=== PATIENT | female | born 1935 | race Caucasian/White ===

== ENCOUNTER → 2017-06-13 | Outpatient (CLI) | payer MEDICARE ==
--- NOTE | 2017-06-13 12:26 | Diagnostic Imaging Report ---
INDICATION: Screening for osteoporosis. COMPARISON: 06/24/2014. TECHNIQUE: The bone mineral analysis of the lumbar spine and both hips was performed. FINDINGS: The bone mineral density of the lumbar spine from L2 to L4 is 0.959 with a T score of -2.0. This compares with 0.986 and -1.8 on the prior exam. The bone mineral density of the left femoral neck is 0.988 with a T score of -0.4. This compares with 0.937 and -0.7 previously. The bone mineral density of the right femoral neck is 0.940 with a T score -0.7. This compares with 0.900 and -1.0. IMPRESSION: Osteopenia of the lumbar spine with normal bone mineral density of the bilateral femoral necks. Dictated by: Dictated on workstation # [id number]
--- NOTE | 2017-06-13 18:44 | Diagnostic Imaging Report ---
INDICATION: Routine screening. Comparison is made with prior study from 06/27/2015 and 06/24/2014. The current study was also evaluated with a Computer Aided Detection (CAD) system. FINDINGS: Both breasts are primarily involutional. A tiny nodule with calcifications in the medial aspect of the right breast appears stable. No new mass or malignant-appearing microcalcifications are seen. There are vascular calcifications bilaterally. The axillae are unremarkable. IMPRESSION: No mammographic features suspicious for malignancy are identified. ACR BI-RADS Category 2: Benign findings. Result letter will be mailed to the patient. Note: At least 10% of breast cancer is not imaged by mammography. Dictated by: Dictated on workstation # [id number]
== END ==
LOC: RAD 10:08
PROVIDERS: ATTEND Internal Medicine
DX: Z12.31 Encounter for screening mammogram for malignant neoplasm of breast (principal); Z13.820 Encounter for screening for osteoporosis; M85.88 Other specified disorders of bone density and structure, other site
CPT/HCPCS: 77067; 77080

== ENCOUNTER 2022-05-12 08:57 | Emergency (ER) | payer MEDICARE ==
[~2022-05-12] VITALS: Ht 154.9 cm; Wt 56.2 kg
--- NOTE | 2022-05-12 10:29 | ED Abdominal Pain ---
General Chief Complaint: Abdominal/GI Problems Stated Complaint: CONSTIPATION Nursing Triage Note: PT AMB TO RM 9 WITH COMPLAINT OF NOT FEELING WELL AND CONSTIPATION. STATES SHE HAD COVID OVER A WEEK AGO AND HAD DIARRHEA AFTER TAKING MEDICINE FOR IT. STATES SHE HAS NOT HAD A BOWEL MOVEMENT AND FEELS LIKE SHE IS DEHYDRATED. Source of Information: Patient Exam Limitations: No Limitations History of Present Illness Date Seen by Provider: May 12, 2022 Time Seen by Provider: 10:20 Initial Comments Here with report of feeling weak and concerns for constipation. She apparently had COVID-19 2 weeks ago that has recovered but is not recovering well. She initiated molnupiravir on 05/04/2022 and completed that. She subsequently had diarrhea for at least a day and then took antidiarrheal medicines. She stopped having diarrhea but has not had a bowel movement for 2 to 3 days. She complains of lower abdominal pain. She complains of weakness and not drinking or eating well because she feels so terrible. Denies fever or chills. Follows with Dr. Retana. Timing/Duration: 2-3 Days, Getting Worse Severity/Quality: Mild, Moderate, Aching Location: LLQ, Suprapubic Radiation: No Radiation Activities at Onset: None Modifying Factors: Worsens With Eating Associated Symptoms: No Back Pain, No Chest Pain, No Fever/Chills; Fatigue; No Nausea/Vomiting, No Shortness of Air; Weakness Allergies and Home Medications Allergies Coded Allergies: Sulfa (Sulfonamides) (Verified Allergy, 10/03/09) Patient Home Medication List Home Medication List Reviewed: Yes Review of Systems Review of Systems Constitutional: see HPI; No chills, No fever EENTM: No Nose Congestion, No Throat Pain Respiratory: Denies Cough, Denies Shortness of Air Cardiovascular: Denies Edema Gastrointestinal: Constipated, Diarrhea Genitourinary: Other (Decreased output) Musculoskeletal: No back pain, No muscle pain Skin: no symptoms reported Psychiatric/Neurological: Denies Headache; Weakness All Other Systems Reviewed Negative Unless Noted: Yes Past Ogjrkfl-Ylwioo-Zpvtsm Hx Patient Social History Tobacco Use?: No Use of E-Cig and/or Vaping dev: No Substance use?: No Alcohol Use?: No Pt feels they are or have been: No Past Medical History Surgeries: No Respiratory: No Cardiac: Yes High Cholesterol, Hypertension Neurological: No Endocrine: Yes Hypothyroidsim Family Medical History Reviewed and Corrections made No Pertinent Family Hx Physical Exam Vital Signs Vital Signs - First Documented 05/12/22 09:23 Temp 36.0 Pulse 67 Resp 17 B/P (MAP) 196/90 (125) Pulse Ox 95 O2 Delivery Room Air Capillary Refill : Less Than 3 Seconds Height/Weight/BMI Height: '" Weight: lbs. oz. kg; 23.00 BMI Method: General Appearance: WD/WN, mild distress HEENT: PERRL/EOMI, pharynx normal Neck: full range of motion, supple Respiratory: lungs clear, normal breath sounds Cardiovascular: regular rate, rhythm, no murmur Gastrointestinal: soft, abnormal bowel sounds (Decreased), tenderness (Left lower quadrant and suprapubic) Extremities: non-tender, normal inspection Back: normal inspection, no CVA tenderness, no vertebral tenderness Neurologic/Psychiatric: alert, oriented x 3 Skin: normal color, warm/dry Progress/Results/Core Measures Results/Orders Lab Results Laboratory Tests Test 05/12/22 10:44 05/12/22 11:10 Range/Units Urine Color YELLOW Urine Clarity CLEAR Urine pH 6.0 5-9 Urine Specific [place] 1.015 L 1.016-1.022 Urine Protein NEGATIVE NEGATIVE Urine Glucose (UA) NEGATIVE NEGATIVE Urine Ketones NEGATIVE NEGATIVE Urine Nitrite NEGATIVE NEGATIVE Urine Bilirubin NEGATIVE NEGATIVE Urine Urobilinogen 0.2 < = 1.0 MG/DL Urine Leukocyte Esterase NEGATIVE NEGATIVE Urine RBC (Auto) 1+ H NEGATIVE Urine RBC 10-25 H /HPF Urine WBC 2-5 /HPF Urine Crystals NONE /LPF Urine Bacteria FEW H /HPF Urine Casts NONE /LPF Urine Mucus NEGATIVE /LPF Urine Culture Indicated YES White Blood Count 14.6 H 4.3-11.0 10^3/uL Red Blood Count 4.17 3.80-5.11 10^6/uL Hemoglobin 12.8 11.5-16.0 g/dL Hematocrit 38 35-52 % Mean Corpuscular Volume 91 80-99 fL Mean Corpuscular Hemoglobin 31 25-34 pg Mean Corpuscular Hemoglobin Concent 34 32-36 g/dL Red Cell Distribution Width 12.5 10.0-14.5 % Platelet Count 241 130-400 10^3/uL Mean Platelet Volume 9.9 9.0-12.2 fL Immature Granulocyte % (Auto) 1 % Neutrophils (%) (Auto) 91 H 42-75 % Lymphocytes (%) (Auto) 5 L 12-44 % Monocytes (%) (Auto) 4 0-12 % Eosinophils (%) (Auto) 0 0-10 % Basophils (%) (Auto) 0 0-10 % Neutrophils # (Auto) 13.3 H 1.8-7.8 10^3/uL Lymphocytes # (Auto) 0.7 L 1.0-4.0 10^3/uL Monocytes # (Auto) 0.5 0.0-1.0 10^3/uL Eosinophils # (Auto) 0.0 0.0-0.3 10^3/uL Basophils # (Auto) 0.0 0.0-0.1 10^3/uL Immature Granulocyte # (Auto) 0.1 0.0-0.1 10^3/uL Neutrophils % (Manual) 86 % Lymphocytes % (Manual) 4 % Monocytes % (Manual) 4 % Band Neutrophils 6 % Toxic Granulation 2+ Blood Morphology Comment NORMAL Sodium Level 126 L 135-145 MMOL/L Potassium Level 4.2 3.6-5.0 MMOL/L Chloride Level 95 L 98-107 MMOL/L Carbon Dioxide Level 20 L 21-32 MMOL/L Anion Gap 11 5-14 MMOL/L Blood Urea Nitrogen 15 7-18 MG/DL Creatinine 0.79 0.60-1.30 MG/DL Estimat Glomerular Filtration Rate 73 BUN/Creatinine Ratio 19 Glucose Level 119 H 70-105 MG/DL Calcium Level 8.2 L 8.5-10.1 MG/DL Corrected Calcium 8.6 8.5-10.1 MG/DL Magnesium Level 1.7 1.6-2.4 MG/DL Total Bilirubin 0.6 0.1-1.0 MG/DL Aspartate Amino Transf (AST/SGOT) 17 5-34 U/L Alanine Aminotransferase (ALT/SGPT) 25 0-55 U/L Alkaline Phosphatase 82 40-136 U/L C-Reactive Protein High Sensitivity 0.49 0.00-0.50 MG/DL Total Protein 6.0 L 6.4-8.2 GM/DL Albumin 3.5 3.2-4.5 GM/DL TSH [place] Testing 1.37 0.35-4.94 UIU/ML My Orders Orders - VAMSI MARIE MD Cbc With Automated Diff (05/12/22 10:28) Comprehensive Metabolic Panel (05/12/22 10:28) Hs C Reactive Protein (05/12/22 10:28) Ua Culture If Indicated (05/12/22 10:28) Ed Iv/Invasive Line Start (05/12/22 10:28) Ns Iv 500 Ml (Sodium Chloride 0.9%) (05/12/22 10:30) Acute Abd Series (05/12/22 10:28) Urine Culture (05/12/22 10:44) Manual Differential (05/12/22 11:10) Ns Iv 500 Ml (Sodium Chloride 0.9%) (05/12/22 12:00) Ct Abdomen/Pelvis W (05/12/22 12:58) Iohexol Injection (Omnipaque 350 Mg/Ml 1 (05/12/22 13:15) Received Contrast (Hold Metformin- Contr (05/12/22 13:15) Ns (Ivpb) (Sodium Chloride 0.9% Ivpb Bag (05/12/22 13:15) Magnesium (05/12/22 13:07) Thyroid Analyzer (05/12/22 13:07) Bisacodyl Suppository (Dulcolax Supposit (05/12/22 14:30) Medications Given in ED Current Medications Medications Dose Ordered Sig/Kimberly Route Start Time Stop Time Status Last Admin Dose Admin Bisacodyl 20 mg ONCE ONCE ND 05/12/22 14:30 05/12/22 14:31 DC 05/12/22 14:29 20 MG Iohexol 100 ml ONCE ONCE IV 05/12/22 13:15 05/12/22 13:16 DC 05/12/22 13:17 62 ML Sodium Chloride 100 ml ONCE ONCE IV 05/12/22 13:15 05/12/22 13:16 DC 05/12/22 13:17 80 ML Sodium Chloride 500 ml @ 0 mls/hr Q0M ONCE IV 05/12/22 10:30 05/12/22 10:31 DC 05/12/22 11:12 0 MLS/HR Sodium Chloride 500 ml @ 0 mls/hr Q0M ONCE IV 05/12/22 12:00 05/12/22 12:02 DC 05/12/22 12:34 0 MLS/HR Vital Signs/I&O 05/12/22 09:23 Temp 36.0 Pulse 67 Resp 17 B/P (MAP) 196/90 (125) Pulse Ox 95 O2 Delivery Room Air Blood Pressure Mean: 125 Progress Progress Note : Progress Note Seen and evaluated. IV, CBC, CMP and UA ordered. We will get acute abdominal series. Normal saline 500 mL bolus ordered. Monitor patient. 1230: Repeat normal saline 500 mL bolus as patient is dehydrated based on low sodium and chloride. She still appears quite peaked. Acute abdominal series complete. We will see if she feels a little better. There is question of ileus and distal colonic constipation. Monitor patient. 1300: Patient is still quite ill- appearing and weak appearing. Given her x-ray findings, we will go ahead and do CT abdomen of pelvis to rule out obstruction better and other pathology. White count is elevated but hemoglobin normal. CRP is low. Discussed with patient who agrees. Fluids are still running. Monitor patient. 1430: Dulcolax suppositories 20 mg placed by me. Patient did have a large stool ball but it was soft. We will see if this helps. 1504: Patient had large stool and feels much better. Patient feels comfortable going home. I did talk with her about the apparent distal stone on the left that is nonobstructing as there is no hydronephrosis. She will need to follow-up with urologist. I will send a copy of the chart to her primary care doctor, Dr. Retana, who can assist with ref erral to urology as there is no local urologist currently. Discharged home with return precautions. Patient verbalized understanding instructions and agreement with plan. Diagnostic Imaging Diagonstic Imaging: Xray Plain Films/CT/US/NM/MRI: chest, abdomen Comments [facility] [place], [place] NAME: BRO DONOVAN [facility] REC#: [id number] PT STATUS: REG ER : 1935 PHYSICIAN: VAMSI MARIE MD ADMIT DATE: 05/12/22/ER Draft Date of Exam:05/12/22 ACUTE ABD SERIES INDICATION: Not feeling well, constipation, COVID over week ago, diarrhea. TECHNIQUE: Single view chest with supine and upright radiograph of the abdomen. CORRELATION STUDY: None FINDINGS: Frontal radiograph of the chest demonstrates no acute abnormality. Rather sizable esophageal hernia. Scattered gas-filled loops of bowel are present. This includes the stomach, small bowel and colon. No differentiating air-fluid levels or findings to suggest high degree obstruction. There is moderate stool retention in the distal colon. No definitive pathologic intra-abdominal calcifications. Multiple calcifications in the pelvis favor probable phleboliths. IMPRESSION: 1. Negative for acute cardiopulmonary abnormality. 2. Prominent gas distention throughout the gastrointestinal track with a few air-fluid levels. Features favor probable ileus. No findings to suggest underlying obstruction. Mild distal colonic fecal loading. Dictated on workstation # [id number] Dict: 05/12/22 1045 Trans: 05/12/22 1123 [facility] [id number] Interpreted by: CINDY STEPHENS DO Electronically signed by: [facility] Imaging: CT Plain Films/CT/US/NM/MRI: abdomen, pelvis Comments [facility] [place] [place] NAME: VENUSBRO R [facility] REC#: [id number] PT STATUS: REG ER : 1935 PHYSICIAN: VAMSI MARIE MD ADMIT DATE: 05/12/22/ER Draft Date of Exam:05/12/22 CT ABDOMEN/PELVIS W PROCEDURE: CT abdomen and pelvis with contrast. TECHNIQUE: Multiple contiguous axial images were obtained through the abdomen and pelvis after administration of intravenous contrast. Auto Exposure Controls were utilized during the CT exam to meet ALARA standards for radiation dose reduction. All CT scans use one or more of the following dose optimizing techniques: automated exposure control, MA and/or KvP adjustment based on patient size and exam type or iterative reconstruction. INDICATION: 87-year-old female not feeling well, constipation. CORRELATION STUDY: None. FINDINGS: LOWER THORAX: Lung bases with perhaps atelectasis and/or scarring. No basilar infiltrate. There is a rather sizable esophageal hernia with approximately one-third of the stomach partially folded on itself in the lower chest. Component of partial obstruction is not excluded. LIVER: Unremarkable. GALLBLADDER: Present and unremarkable. No bile duct dilatation. SPLEEN: Unremarkable. PANCREAS: Unremarkable. ADRENAL GLANDS: Unremarkable. KIDNEYS: Some generalized thinning of the renal parenchyma of both kidneys, right greater than left. Nonobstructing left renal stone. 7 x 5 mm stone at the most distal left UVJ. Despite the size of the stone, there is very little left-sided obstruction. Some generalized ureteric wall thickening bilaterally. ABDOMINAL AORTA: Mild wall calcification, nonaneurysmal. Retroaortic left renal vein, normal variant. No pathologically enlarged aortocaval lymph nodes. GASTROINTESTINAL TRACT: Moderate amount of a fecal loading at the rectum. Slight rectal wall thickening and some haziness and the presacral soft tissues could be a component of proctitis and/or stercoral colitis. Remainder of the colon relatively unremarkable apart from a few scattered diverticula. Normal appendix is present. No abdominal ascites and/or free air. Gas and fluid-filled loops of small bowel and a relatively nonobstructive appearance. No abdominal ascites and/or free air.. URINARY BLADDER: Apart from the calcification and some wall thickening of the UVJ, otherwise unremarkable. REPRODUCTIVE: Uterus and adnexa unremarkable. OSSEOUS STRUCTURES: No acute abnormality. OTHER: None. IMPRESSION: 1. Rather prominent, upwards of 7 mm calcification at the distal left UVJ. Despite the size of the stone, results in very little, if any, obstruction. There is the suggestion of some wall thickening at the left posterolateral bladder/UVJ. 2. Additional nonobstructing left renal stone. Some generalized thinning of the renal parenchyma of both kidneys, right greater than left. 3. Moderate distal colonic fecal loading. A component of proctitis/stercoral colitis not excluded. No hydroureteral obstruction. 4. Rather sizable esophageal hernia with portions of the stomach somewhat folded on itself. May result in partial and/or intermittent obstruction. Dictated on workstation # [id number] Dict: 05/12/22 1329 Trans: 05/12/22 1349 [facility] [id number] Interpreted by: CINDY STEPHENS DO Electronically signed by: Reviewed: Reviewed by Me Departure Impression Primary Impression: Constipation Qualified Codes: K59.00 - Constipation, unspecified Additional Impressions: Dehydration Calculus of distal left ureter Disposition: 01 HOME, SELF-CARE Condition: Improved Departure-Patient Inst. Decision time for Depature: 15:07 Referrals: TORI RETANA DO (PCP/Family) Primary Care Physician Patient Instructions: Severe Abdominal Pain, Adult (DC), Kidney Stones (DC), D ehydration, Adult ED, Small Bowel Obstruction (DC), Appendicitis, Adult (DC) Add. Discharge Instructions: All discharge instructions reviewed with patient and/or family. Voiced understanding. Drink plenty of fluids by taking small sips frequently. Clear a light diet for the next 24 hours and then advance as tolerated. It is very important that you follow-up with Dr. Retana to discuss current situation and to discuss the stone that was noted in the left sided urinary tract at the bladder. This does not seem to be causing obstruction and is likely chronic but you will need to follow-up with urologist. He can help with urology referral. Continue home medications as previously prescribed. Return for worse pain, vomiting, weakne ss, fever, breathing problems or other concerns as needed. Copy Copies To 1: TORI RETANA TIMOTHY D MD May 12, 2022 10:29
[2022-05-12] MEDS ORDERED: NS IV 500 ML 500 ML IV ONE ×2 (10:30→12:00)
[2022-05-12 10:53] LABS: BILIRUBIN,URINE NEGATIVE (NEGATIVE); CLARITY,URINE CLEAR; COLOR,URINE YELLOW; GLUCOSE, URINE (UA) NEGATIVE (NEGATIVE); KETONES,URINE NEGATIVE (NEGATIVE); LEUKOCYTE ESTERASE ,URINE NEGATIVE (NEGATIVE); NITRITE,URINE NEGATIVE (NEGATIVE); PROTEIN,URINE NEGATIVE (NEGATIVE)
[2022-05-12 11:03] LABS: BACTERIA,URINE FEW /HPF
[2022-05-12 11:20] LABS: BASOPHILS % (AUTO) 0 % (0-10); EOSINOPHILS % (AUTO) 0 % (0-10); HEMATOCRIT 38 % (35-52); HEMOGLOBIN 12.8 g/dL (11.5-16.0); LYMPHOCYTES # (AUTO) 0.7 10^3/uL (1.0-4.0); LYMPHOCYTES % (AUTO) 5 % (12-44); MEAN CORPUSCULAR HEMOGLOBIN 31 pg (25-34); MEAN CORPUSCULAR HGB CONC 34 g/dL (32-36); MEAN CORPUSCULAR VOLUME 91 fL (80-99); MEAN PLATELET VOLUME 9.9 fL (9.0-12.2); MONOCYTES # (AUTO) 0.5 10^3/uL (0.0-1.0); MONOCYTES % (AUTO) 4 % (0-12); NEUTROPHILS # (AUTO) 13.3 10^3/uL (1.8-7.8); NEUTROPHILS % (AUTO) 91 % (42-75); PLATELET COUNT 241 10^3/uL (130-400); WHITE BLOOD COUNT 14.6 10^3/uL (4.3-11.0)
--- NOTE | 2022-05-12 11:25 | Diagnostic Imaging Report ---
INDICATION: Not feeling well, constipation, COVID over week ago, diarrhea. TECHNIQUE: Single view chest with supine and upright radiograph of the abdomen. CORRELATION STUDY: None FINDINGS: Frontal radiograph of the chest demonstrates no acute abnormality. Rather sizable esophageal hernia. Scattered gas-filled loops of bowel are present. This includes the stomach, small bowel and colon. No differentiating air-fluid levels or findings to suggest high degree obstruction. There is moderate stool retention in the distal colon. No definitive pathologic intra-abdominal calcifications. Multiple calcifications in the pelvis favor probable phleboliths. IMPRESSION: 1. Negative for acute cardiopulmonary abnormality. 2. Prominent gas distention throughout the gastrointestinal track with a few air-fluid levels. Features favor probable ileus. No findings to suggest underlying obstruction. Mild distal colonic fecal loading. Dictated by: Dictated on workstation # [id number]
[2022-05-12 11:30] LABS: ALBUMIN 3.5 GM/DL (3.2-4.5); POTASSIUM 4.2 MMOL/L (3.6-5.0)
[2022-05-12 11:31] LABS: CALCIUM 8.2 MG/DL (8.5-10.1)
[2022-05-12 11:35] LABS: BILIRUBIN,TOTAL 0.6 MG/DL (0.1-1.0)
[2022-05-12 11:36] LABS: CREATININE SERUM 0.79 MG/DL (0.60-1.30)
[2022-05-12 11:46] LABS: BAND NEUTROPHILS 6 %; LYMPHOCYTES % (MANUAL) 4 %; MONOCYTES % (MANUAL) 4 %; NEUTROPHILS % (MANUAL) 86 %; RBC MORPH NORMAL; TOXIC GRANULATION/VACUOLAZATIO 2+
[2022-05-12] MEDS ORDERED: NS 100 ML (IVPB) BAG IV ONE (13:15)
[2022-05-12] MEDS ORDERED: HOLD METFORMIN - RECEIVED CONTRAST 20 ML VIAL IV SCH (13:15)
[2022-05-12] MEDS ORDERED: IOHEXOL 350 MG/ML 100 ML (OMNIPAQUE 350) VIAL IV ONE (13:15)
[2022-05-12 13:26] LABS: MAGNESIUM 1.7 MG/DL (1.6-2.4)
[2022-05-12 13:46] LABS: TSH (THYROID ANALYZER) 1.37 UIU/ML (0.35-4.94)
--- NOTE | 2022-05-12 13:50 | Diagnostic Imaging Report ---
PROCEDURE: CT abdomen and pelvis with contrast. TECHNIQUE: Multiple contiguous axial images were obtained through the abdomen and pelvis after administration of intravenous contrast. Auto Exposure Controls were utilized during the CT exam to meet ALARA standards for radiation dose reduction. All CT scans use one or more of the following dose optimizing techniques: automated exposure control, MA and/or KvP adjustment based on patient size and exam type or iterative reconstruction. INDICATION: 87-year-old female not feeling well, constipation. CORRELATION STUDY: None. FINDINGS: LOWER THORAX: Lung bases with perhaps atelectasis and/or scarring. No basilar infiltrate. There is a rather sizable esophageal hernia with approximately one-third of the stomach partially folded on itself in the lower chest. Component of partial obstruction is not excluded. LIVER: Unremarkable. GALLBLADDER: Present and unremarkable. No bile duct dilatation. SPLEEN: Unremarkable. PANCREAS: Unremarkable. ADRENAL GLANDS: Unremarkable. KIDNEYS: Some generalized thinning of the renal parenchyma of both kidneys, right greater than left. Nonobstructing left renal stone. 7 x 5 mm stone at the most distal left UVJ. Despite the size of the stone, there is very little left-sided obstruction. Some generalized ureteric wall thickening bilaterally. ABDOMINAL AORTA: Mild wall calcification, nonaneurysmal. Retroaortic left renal vein, normal variant. No pathologically enlarged aortocaval lymph nodes. GASTROINTESTINAL TRACT: Moderate amount of a fecal loading at the rectum. Slight rectal wall thickening and some haziness and the presacral soft tissues could be a component of proctitis and/or stercoral colitis. Remainder of the colon relatively unremarkable apart from a few scattered diverticula. Normal appendix is present. No abdominal ascites and/or free air. Gas and fluid-filled loops of small bowel and a relatively nonobstructive appearance. No abdominal ascites and/or free air.. URINARY BLADDER: Apart from the calcification and some wall thickening of the UVJ, otherwise unremarkable. REPRODUCTIVE: Uterus and adnexa unremarkable. OSSEOUS STRUCTURES: No acute abnormality. OTHER: None. IMPRESSION: 1. Rather prominent, upwards of 7 mm calcification at the distal left UVJ. Despite the size of the stone, results in very little, if any, obstruction. There is the suggestion of some wall thickening at the left posterolateral bladder/UVJ. 2. Additional nonobstructing left renal stone. Some generalized thinning of the renal parenchyma of both kidneys, right greater than left. 3. Moderate distal colonic fecal loading. A component of proctitis/stercoral colitis not excluded. No hydroureteral obstruction. 4. Rather sizable esophageal hernia with portions of the stomach somewhat folded on itself. May result in partial and/or intermittent obstruction. Dictated by: Dictated on workstation # [id number]
[2022-05-12] MEDS ORDERED: BISACODYL 10 MG SUPP (DULCOLAX) PR ONE (14:30)
[2022-05-12 15:56] VITALS: BP 153/79
== END 2022-05-12 15:56 | disposition home or self-care (01) ==
LOC: EDUNIT# 08:57 → ER 08:59
DX: N20.1 Calculus of ureter (principal); K59.00 Constipation, unspecified; E86.0 Dehydration; D72.829 Elevated white blood cell count, unspecified; R79.82 Elevated C-reactive protein (CRP); Z86.16 Personal history of COVID-19
CPT/HCPCS: 36415; 74022; 74177; 80053; 81000; 83735; 84443; 85007; 85027; 86141; 87088

== ENCOUNTER 2022-12-22 06:25 | Emergency (ER) | payer MEDICARE ==
[~2022-12-22] VITALS: Ht 152.4 cm; Wt 61.0 kg
--- NOTE | 2022-12-22 07:09 | ED General ---
General Chief Complaint: General Problems/Pain Stated Complaint: PT STS FEELS DEHYDRATED,SKIN ICHING Nursing Triage Note: Pt presents with c/o possible dehydration. She states she woke up very thirsty and c/o dry itchy skin. Pt states she's been able to pee, but has not been drinking very much water. Source of Information: Patient Exam Limitations: No Limitations History of Present Illness Date Seen by Provider: Dec 22, 2022 Time Seen by Provider: 06:52 Initial Comments This 87-year-old woman presents to the emergency room this morning with complaints of dry mouth and dry itchy skin. She feels like she is dehydrated. She drank 5 glasses of water this morning and still feels that way. She admits that she normally does not like to drink water and therefore feels like she got behind on hydration. She is due for evaluation of her thyroid labs for maintenance of her hypothyroidism. Dr. Retana is her primary care provider. Allergies and Home Medications Allergies Coded Allergies: Sulfa (Sulfonamides) (Verified Allergy, 10/03/09) Patient Home Medication List Home Medication List Reviewed: Yes Review of Systems Review of Systems Constitutional: no symptoms reported EENTM: see HPI Respiratory: no symptoms reported Cardiovascular: no symptoms reported Gastrointestinal: no symptoms reported Genitourinary: no symptoms reported : No Musculoskeletal: no symptoms reported Skin: see HPI Psychiatric/Neurological: No Symptoms Reported Hematologic/Lymphatic: No Symptoms Reported Immunological/Allergic: no symptoms reported Past Eecixlz-Ndcxge-Scauvl Hx Patient Social History Tobacco Use?: No Use of E-Cig and/or Vaping dev: No Substance use?: No Alcohol Use?: No Past Medical History Surgeries: No Respiratory: No Cardiac: Yes High Cholesterol, Hypertension Neurological: No : No Genitourinary: No Gastrointestinal: No Musculoskeletal: No Endocrine: Yes Hypothyroidsim Cancer: No Psychosocial: No Family Medical History No Pertinent Family Hx Physical Exam Vital Signs Vital Signs - First Documented 12/22/22 12/22/22 06:35 10:05 Temp 36.6 Pulse 70 Resp 16 B/P (MAP) 184/78 (113) Pulse Ox 99 O2 Delivery Room Air Capillary Refill : Less Than 3 Seconds Height, Weight, BMI Height: '" Weight: lbs. oz. kg; 26.00 BMI Method: General Appearance: No Apparent Distress, WD/WN, Thin HEENT: PERRL/EOMI, Normal ENT Inspection, Other (Oropharynx dry) Neck: Normal Inspection Respiratory: Lungs Clear, Normal Breath Sounds, No Accessory Muscle Use Cardiovascular: Regular Rate, Rhythm, No Murmur Gastrointestinal: Non Tender, Soft Extremity: Normal Inspection, No Pedal Edema Neurologic/Psychiatric: Alert, Oriented x3, No Motor/Sensory Deficits, Normal Mood/Affect Skin: Normal Color, Warm/Dry Progress/Results/Core Measures Suspected Sepsis SIRS Temperature: Pulse: 70 Respiratory Rate: 16 Laboratory Tests 12/22/22 06:42: White Blood Count 9.4 Blood Pressure 184 /78 Mean: 113 Laboratory Tests 12/22/22 06:42: Creatinine 0.86, Platelet Count 212 Results/Orders Lab Results Laboratory Tests Test 12/22/22 06:42 Range/Units White Blood Count 9.4 4.3-11.0 10^3/uL Red Blood Count 4.17 3.80-5.11 10^6/uL Hemoglobin 13.0 11.5-16.0 g/dL Hematocrit 39 35-52 % Mean Corpuscular Volume 95 80-99 fL Mean Corpuscular Hemoglobin 31 25-34 pg Mean Corpuscular Hemoglobin Concent 33 32-36 g/dL Red Cell Distribution Width 13.0 10.0-14.5 % Platelet Count 212 130-400 10^3/uL Mean Platelet Volume 11.1 9.0-12.2 fL Immature Granulocyte % (Auto) 0 % Neutrophils (%) (Auto) 72 42-75 % Lymphocytes (%) (Auto) 12 12-44 % Monocytes (%) (Auto) 9 0-12 % Eosinophils (%) (Auto) 6 0-10 % Basophils (%) (Auto) 1 0-10 % Neutrophils # (Auto) 6.8 1.8-7.8 10^3/uL Lymphocytes # (Auto) 1.1 1.0-4.0 10^3/uL Monocytes # (Auto) 0.8 0.0-1.0 10^3/uL Eosinophils # (Auto) 0.6 H 0.0-0.3 10^3/uL Basophils # (Auto) 0.1 0.0-0.1 10^3/uL Immature Granulocyte # (Auto) 0.0 0.0-0.1 10^3/uL Sodium Level 136 135-145 MMOL/L Potassium Level 3.9 3.6-5.0 MMOL/L Chloride Level 105 98-107 MMOL/L Carbon Dioxide Level 20 L 21-32 MMOL/L Anion Gap 11 5-14 MMOL/L Blood Urea Nitrogen 11 7-18 MG/DL Creatinine 0.86 0.60-1.30 MG/DL Estimat Glomerular Filtration Rate 66 BUN/Creatinine Ratio 13 Glucose Level 105 70-105 MG/DL Calcium Level 8.8 8.5-10.1 MG/DL Magnesium Level 1.9 1.6-2.4 MG/DL Thyroid Stimulating Hormone (TSH) 2.36 0.35-4.94 UIU/ML Free Thyroxine 1.19 0.70-1.48 NG/DL My Orders Orders - VICTOR MANUEL RODRIGUEZ MD Ed Iv/Invasive Line Start (12/22/22 07:02) Ns Iv 1000 Ml (Sodium Chloride 0.9%) (12/22/22 07:15) Basic Metabolic Panel (12/22/22 07:02) Cbc With Automated Diff (12/22/22 07:02) Magnesium (12/22/22 07:02) Thyroid Stimulating Hormone (12/22/22 07:02) Free T4 (Free Thyroxine) (12/22/22 07:02) Medications Given in ED Vital Signs/I&O 12/22/22 12/22/22 06:35 10:05 Temp 36.6 36.6 Pulse 70 69 Resp 16 20 B/P (MAP) 184/78 (113) 160/91 Pulse Ox 99 O2 Delivery Room Air Capillary Refill : Less Than 3 Seconds Blood Pressure Mean: 113 Progress Note #1: Time: 07:07 Progress Note I received report from nursing staff during triage at 0645. Patient was interviewed and examined at 0652. Oropharynx was found to be quite dry. She had Pepto-Bismol coating her lips and mouth which she took this morning for an episode of diarrhea. Patient was noted to have significant hypertension. Cuff was replaced with an appropriately sized cuff and blood pressure rechecked which was much improved at 160/71. Patient usually takes her blood pressure medication at night. She reports history of hypothyroidism and needing her maintenance labs for her thyroid dosing. We will include TSH and free T4 in her work-up. She will be hydrated with a liter of normal saline while we process her labs. Progress Note #2: Progress Note Labs were reviewed and interpreted by me. CBC, BMP, TSH, and free T4 were all unremarkable. Patient finished her liter of IV fluid. Patient was provided reassurance. See discharge instructions. Departure Impression Primary Impression: Pruritus Additional Impressions: Dry mouth Hypothyroidism Qualified Codes: E03.9 - Hypothyroidism, unspecified Disposition: HOME, SELF-CARE Condition: Improved Departure-Patient Inst. Decision time for Depature: 09:55 Referrals: TORI RETANA DO (PCP/Family) Primary Care Physician Patient Instructions: Xerostomia, Itchy Skin Add. Discharge Instructions: Lab work was assessed in the emergency room today. Based on lab work, you did not appear significantly dehydrated. No other significant concerns were appreciated on your labs. Your thyroid labs were checked today including TSH a nd free T4. They were normal. A copy of your ER note along with your labs will be sent to Dr. Retana. Follow-up with Dr. Retana sometime in the following 1 to 2 weeks. Please call on Saturday to make an appointment. You may continue using your medications as previously directed. You may continue using moisturizing lotion on your skin for dry itchy skin. Return to care if you have worsening symptoms despite following these instructions. All discharge instructions reviewed with patient and/or family. Voiced understanding. Copy Copies To 1: TORI RETANA JOSHUA T MD Dec 22, 2022 07:09
[2022-12-22 07:10] LABS: BASOPHILS # (AUTO) 0.1 10^3/uL (0.0-0.1); BASOPHILS % (AUTO) 1 % (0-10); EOSINOPHILS # (AUTO) 0.6 10^3/uL (0.0-0.3); EOSINOPHILS % (AUTO) 6 % (0-10); HEMATOCRIT 39 % (35-52); LYMPHOCYTES # (AUTO) 1.1 10^3/uL (1.0-4.0); LYMPHOCYTES % (AUTO) 12 % (12-44); MEAN CORPUSCULAR HEMOGLOBIN 31 pg (25-34); MEAN CORPUSCULAR HGB CONC 33 g/dL (32-36); MEAN CORPUSCULAR VOLUME 95 fL (80-99); MEAN PLATELET VOLUME 11.1 fL (9.0-12.2); MONOCYTES # (AUTO) 0.8 10^3/uL (0.0-1.0); MONOCYTES % (AUTO) 9 % (0-12); NEUTROPHILS # (AUTO) 6.8 10^3/uL (1.8-7.8); NEUTROPHILS % (AUTO) 72 % (42-75); PLATELET COUNT 212 10^3/uL (130-400); WHITE BLOOD COUNT 9.4 10^3/uL (4.3-11.0)
[2022-12-22 07:15] LABS: POTASSIUM 3.9 MMOL/L (3.6-5.0)
[2022-12-22] MEDS ORDERED: NS IV 1000 ML 1,000 ML IV ONE (07:15)
[2022-12-22 07:16] LABS: CALCIUM 8.8 MG/DL (8.5-10.1)
[2022-12-22 07:20] LABS: CREATININE SERUM 0.86 MG/DL (0.60-1.30)
[2022-12-22 07:23] LABS: MAGNESIUM 1.9 MG/DL (1.6-2.4)
[2022-12-22 07:46] LABS: FREE T4 (FREE THYROXINE) 1.19 NG/DL (0.70-1.48)
[2022-12-22 10:05] VITALS: BP 160/91
== END 2022-12-22 10:06 | disposition home or self-care (01) ==
LOC: EDUNIT# 06:25 → ER 06:28
DX: L29.9 Pruritus, unspecified (principal); E03.9 Hypothyroidism, unspecified; R68.2 Dry mouth, unspecified; I10 Essential (primary) hypertension
CPT/HCPCS: 36415; 80048; 83735; 84439; 84443; 85025; 96360